=== PATIENT | male | born 1985 | race Caucasian/White ===

== ENCOUNTER → 2017-12-09 | Outpatient (CLI) | payer BC, OTHER | LOC: M ADAMS 12:23 | DX: S60.051A Contusion of right little finger without damage to nail, initial encounter (principal) | CPT/HCPCS: 73140 ==

== ENCOUNTER 2018-04-13 09:14 | Emergency (ER) | payer OTHER, BC ==
[~2018-04-13] VITALS: Ht 177.8 cm; Wt 109.1 kg
[2018-04-13 09:26] VITALS: BP 138/96
--- NOTE | 2018-04-13 09:49 | REP ---
Clinical: Fall with sacrococcygeal pain. Technique: AP, AP inlet, and lateral views of the sacrum and coccyx. Findings: Bilateral sacroiliac joints appear symmetric and normal. The sacrum and coccyx appear intact. No obvious acute fracture or subluxation noted. Impression: No obvious acute sacrococcygeal fracture or dislocation. Electronically Signed by Chele Wayne MD 04/13/2018 09:40 A
== END 2018-04-13 10:00 | disposition home or self-care (01) ==
LOC: M ED 09:14
DX: S30.0XXA Contusion of lower back and pelvis, initial encounter (principal); W01.0XXA Fall on same level from slipping, tripping and stumbling without subsequent striking against object, initial encounter; Y92.89 Other specified places as the place of occurrence of the external cause

== ENCOUNTER → 2018-06-03 | Outpatient (CLI) | payer BC, OTHER ==
--- NOTE | 2018-06-04 04:10 | REP ---
Clinical: Left ankle pain. Technique: AP, lateral, bilateral oblique views of the left ankle. Findings: Left ankle swelling consistent with inversion injury. No acute fracture dislocation. Ankle mortise intact. Impression: Lateral swelling. Electronically Signed by Chele Wayne MD 06/04/2018 04:00 A
== END ==
LOC: M ADAMS 15:19
PROVIDERS: ATTEND Physician Assistant Medical
DX: M25.472 Effusion, left ankle (principal); M25.572 Pain in left ankle and joints of left foot

== ENCOUNTER → 2019-04-13 | Outpatient (CLI) | payer OTHER ==
--- NOTE | 2019-04-13 17:19 | REP ---
PA and lateral chest: Comparison is comparison is 12/15/2006. The lung barba are clear. The cardiac size is normal. The rebecca, mediastinum, and skeletal structures are unremarkable. Impression: Negative PA and lateral chest. There is no interval change Electronically Signed by Jorge Alberto Martins MD 04/13/2019 05:11 P
== END ==
LOC: M ADAMS 11:29
PROVIDERS: ATTEND Nurse Practitioner Adult Health
DX: Z01.811 Encounter for preprocedural respiratory examination (principal); J06.9 Acute upper respiratory infection, unspecified

== ENCOUNTER 2019-04-21 12:29 | Day surgery (SDC) | payer OTHER ==
[~2019-04-21] VITALS: Ht 177.8 cm; Wt 118.4 kg
[~2019-04-21 12:29] MED LIST: LIDOCAINE 1% MDV 20ML VIAL SQ PRN; LevoFLOXacin IV 500 MG in IV 1 EA IV ONE
[2019-04-21] MEDS ORDERED: propofoL 200 MG/20 ML VIAL As Ordered ONE ×2 (12:49→14:30)
[2019-04-21] MEDS ORDERED: ONDANSETRON 4MG/2ML VIAL (J2405) As Ordered ONE ×2 (12:49→17:34)
[2019-04-21] MEDS ORDERED: KETOROLAC 60 MG/2 ML VIAL (J1885) As Ordered ONE (12:49)
[2019-04-21] MEDS ORDERED: fentaNYL 250 MCG/5 ML INJECTION (J3010) As Ordered ONE (12:49)
[2019-04-21] MEDS ORDERED: MIDAZOLAM INJ 2 MG/2 ML VIAL (J2250) As Ordered ONE (12:49)
[2019-04-21] MEDS ORDERED: ROCURONIUM BROMIDE 50 MG/5 ML VIAL As Ordered ONE ×3 (12:49→14:46)
[2019-04-21] MEDS ORDERED: LIDOCAINE 2% INJ 100 MG/5 ML SDV (FOR ANES.) As Ordered ONE (12:49)
[2019-04-21] MEDS ORDERED: dexameTHASONE 4 MG/ML 1ML VIAL (J1100) As Ordered ONE (12:49)
[2019-04-21] MEDS ORDERED: BUPIVACAINE/EPIN 0.25% 30 ML VIAL As Ordered ONE (13:43)
[2019-04-21] MEDS ORDERED: BUPIVACAINE LIPOSOME/PF 1.3% 20ML VIAL (13.3MG/ML)(EXPAREL)(C9290 PER1MG) As Ordered ONE (13:44)
[2019-04-21] MEDS ORDERED: BUPIVACAINE HCL 0.25% 10 ML VIAL As Ordered ONE (13:44)
[2019-04-21] MEDS ORDERED: LACRILUBE (AKWA TEARS) OPHTH OINT 3.5 GM As Ordered ONE (14:29)
[2019-04-21] MEDS ORDERED: ACETAMINOPHEN 1000MG 100ML IV BTL (OFIRMEV) (J0131 PER 10MG) As Ordered ONE (14:31)
[2019-04-21] MEDS ORDERED: SUGAMMADEX SODIUM 500 MG/5 ML VIAL (BRIDION) As Ordered ONE (15:16)
--- NOTE | 2019-04-21 15:31 | RO ---
DATE OF PROCEDURE: 04/21/2019 PREOPERATIVE DIAGNOSIS: Umbilical hernia. POSTOPERATIVE DIAGNOSIS: Incarcerated umbilical hernia. PROCEDURE: Robotic-assisted laparoscopic umbilical hernia repair with mesh. SURGEON: Dr. Mihai Martínez. WEIGHER BULKER: Gisele Sheridan ( instrument exchange, trocar placement abdominal wall closure, and mesh placement). ANESTHESIA: General endotracheal anesthesia. ESTIMATED BLOOD LOSS: Minimal. FLUIDS: Crystalloid. DESCRIPTION OF PROCEDURE: The patient was brought to the operating room and was given general anesthesia. After adequate anesthesia and preoperative antibiotics were given the patient was prepped and draped in usual sterile fashion. Next, a left upper quadrant 8 mm trocar site was placed with the 15 blade and then Veress needle placed into the abdominal cavity insufflated to 50 mm pressure. An 8 mm camera port was placed at this site and under direct visualization, an epigastric and a left lateral 8 mm trocars were placed. The falciform ligament was taken down with monopolar cut scissors and the hernia was reduced. This was omentum within the hernia sac. This was able to be reduced without significant problems but there was some incarcerated omentum within the hernia sac itself. Once it was reduced, the hernia was closed with 0 Stratafix in a running manner and the Parietex mesh 9 cm round was placed around this hernia, first placing a John-Eagle to bring this mesh up to the abdominal wall. Then #3-0 V-Loc to tack the mesh up to the abdominal wall itself. All trocars were removed under direct visualization. #4-0 Vicryl was used to close all skin incisions. Steri-Strips and a dry sterile dressing was applied. The patient was awakened, extubated, brought to recovery room awake, alert hemodynamic stable. Sponge and needle counts correct times two.
[2019-04-21] MEDS ORDERED: oxyCODONE 5MG TAB As Ordered ONE (15:55)
[2019-04-21] MEDS ORDERED: LR 1,000 ML IV SCH ×2 (16:00→16:15)
[2019-04-21] MEDS: oxyCODONE 5MG TAB PO PRN ×2 (16:00→16:30)
[2019-04-21] MEDS ORDERED: fentaNYL 100 MCG/2 ML INJECTION (J3010) IV PRN (16:00)
[2019-04-21] MEDS ORDERED: ONDANSETRON 4MG/2ML VIAL (J2405) IV PRN (16:00)
[2019-04-21] MEDS: HYDROMORPHONE HCL 0.5 MG/ 0.5 ML SYRINGE (J1170 PER 1) IV PRN ×2 (16:15→16:25)
[2019-04-21] MEDS ORDERED: NORCO, ANEXSIA 5/325MG TABLET (HYDROcodone/ACETAMINOPHEN) PO PRN (16:15)
[2019-04-21 18:30] VITALS: BP 130/70
== END 2019-04-21 18:35 | disposition home or self-care (01) ==
LOC: M SDC 12:29
PROVIDERS: ATTEND Surgery
DX: K42.0 Umbilical hernia with obstruction, without gangrene (principal); R21 Rash and other nonspecific skin eruption; Z88.0 Allergy status to penicillin; F17.220 Nicotine dependence, chewing tobacco, uncomplicated
CPT/HCPCS: 49653; C1781; C9290; J0131; J1100; J1170; J1885; J1956; J2250; J2405; J3010

== ENCOUNTER → 2021-06-20 | Outpatient (CLI) | payer OTHER ==
[~2021-06-20] MED LIST changes: +ISOVUE-300 61% 50ML VIAL As Ordered ONE; +LIDOCAINE 1% MDV 20ML VIAL As Ordered ONE; -LIDOCAINE 1% MDV 20ML VIAL SQ PRN; -LevoFLOXacin IV 500 MG in IV 1 EA IV ONE; +PROHANCE 279.3MG/ML 5ML VIAL As Ordered ONE
== END ==
LOC: M RADPRO 06:26
PROVIDERS: ATTEND Physician Assistant
DX: R93.7 Abnormal findings on diagnostic imaging of other parts of musculoskeletal system (principal); M25.512 Pain in left shoulder; M54.2 Cervicalgia
CPT/HCPCS: 23350; 72141; 73223; 77002; A9576; Q9967

== ENCOUNTER → 2022-05-23 | Outpatient (CLI) | payer BC, OTHER | LOC: M PLAIMG 08:51 | PROVIDERS: ATTEND Registered Nurse | DX: R06.2 Wheezing (principal) ==